=== PATIENT | female | born 2000 | race Caucasian/White ===

== ENCOUNTER 2024-12-01 11:02 | Outpatient (AMB) | payer OTHER, SELFPAY ==
--- NOTE | 2024-12-01 11:04 | MHC.PC.OV ---
Vital Signs 12/01/24 11:18 Height 4 ft 11 in BMI Reason not done Patient refused/unable BP 118/70 Blood Pressure Location Lt brachial Position Sitting Respiration 12 Pulse 113 H Pulse Source Pulse Oximeter Temp 97.2 F Temp Source Oral Pulse Oximetry (%) 99 Oxygen Delivery Method Room Air Intake Visit Reasons: CPE/ anxiety Intake Note: New patient to establish care and cpe [employer] Analyst Required: No Allergies cats Allergy (Unknown, Uncoded 12/01/24 11:42) Unknown dogs Allergy (Unknown, Uncoded 12/01/24 11:42) Unknown wilson Allergy (Unknown, Uncoded 12/01/24 11:42) Unknown Medication List - Last Reconciled 12/01/24 by ESTEBAN Moore No Known Home Meds Tobacco use date assessed: 12/01/24 Dental Screening Dental Screen Date: 12/01/24 Did you have a dental visit in the last 12 months?: No Did you have a dental problem in the last 6 months where you did not have access to dental care?: No Was dental information given to patient?: Patient has dentist HPI HPI Comments History of Present Illness Details 24 y/o F with WEN, obesity, Dysmenorrhea Surgery: none Family hx: As below HM: Tdap declined Pap declined Specialists: None History of Present Illness - The patient is a 24-year-old female presenting to [facility] care and for a CPE - no records avail, previous PCP [facility] P[facility] cc: anxiety and menstrual cramps. - Lifelong social anxiety, worsens in group settings. - Anxiety increases at work and social events like jury duty. - Never used anxiety medication; no counseling history. - Interest in using prn medication for anxiety. - Severe menstrual cramps, no current treatment. - Past use of control patch; no recent therapy. Did not find benefit w/ patch. Interested in OCP but not in COMPL[facility]ANCE [facility] referral. Not ready for pap. - Family history of endometriosis, concern due to severe cramps. - reports Blood work to be checked @ urgent care last year, including complete blood count and ferritin level due to reported hair loss and previous low ferritin levels. Past Surgical History - No prior surgical procedures. Family History - Endometriosis present in family members. 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 Health Maintenance - Tetanus vaccination discussed but declined. Review of Systems - Psychiatric: Reports anxiety, denies depression. - Neurological: Reports no neurological symptoms. - Musculoskeletal: Reports cramping. - Gynecological: Reports severe menstrual cramps. Physical Exam General: Well developed, well nourished, in no acute distress. Appears stated age. Head: Normocephalic, atraumatic. Eyes: Pupils are equal, round and reactive to light and accommodation. Conjunctivae are clear. Vision grossly normal. Ears: TMs clear AU, EACS WNL Nose: Patent, without discharge. Neck: Supple, no adenopathy or thyromegaly. Noted irritation and scabbing on a piercing. Breast: Edu on SBE Lungs: Clear to auscultation bilaterally. No rales, rhonchi or wheeze noted. Good air flow in all britton. Heart: Regular rate and rhythm. No murmurs, click, rubs or gallops are noted. Abdomen: Bowel sounds present in all quadrants. The abdomen is soft, nontender, with no masses or organomegaly noted. No hernias are noted. : Deferred. Reviewed recommendations for routine COMPLIANCE LEAD Pulses: Peripheral pulses are equal and palpable bilaterally. Extremities: No clubbing, cyanosis nor edema is noted. Neurologic: Gait and station normal. Cranial Nerves 2-12 intact. Motor strength grossly symmetrical and intact. No sensory loss. Balance normal. Skin: No rashes, ulcers, or lesions noted. Turgor is good. Skin color is good. Hair and nails are without abnormalities. Psych: Normal eye contact, affect and mood appropriate, and normal interactions. Patient is alert and appropriate to context. R Results Pending Discussion Notes I discussed the patient's current anxiety management, focusing on introducing a PRN medication to alleviate symptoms during stressful situations like jury duty or presentations. I explained the benefits of using a medication that acts swiftly to reduce anxiety without causing sedation. We discussed trialing a low-dose medication at home to understand its effects in a non-stressful environment. Regarding menstrual cramp management, I addressed the historical use of a control patch, its role in symptomatic relief for menstrual cramps. I recommended an oral contraceptive pill as a potential treatment plan to reduce menstrual symptoms. I suggested a referral to an [facility] for comprehensive care and assessment of her menstrual issues - declined. We also reviewed the importance of regular women's health examinations, including Pap smears. We arranged follow-up for blood work results to assess anemia levels due to heavy menstrual periods, and I reinforced the importance of multivitamin use. I recommended follow-up in eight weeks to assess medication effectiveness for both anxiety and menstrual cramps. Assessment and Plan 1. WEN - Initiate hydroxyzine 10mg PRN medication for anxiety episodes. - Home trial for efficacy and side effects. - Follow-up for medication response. - Jury duty excuse letter given 2. Menstrual Cramps - Start oral contraceptive abhilash continuous OCP - [facility] referral declined - Blood work for anemia evaluation. Patient Instructions - Start new anxiety medication at home to test effects. - Begin control pills following your menstrual period.. - Complete blood work today in the lab. - Follow up in 8 weeks for a medication review. - Use the patient portal to communicate and access lab results. Consent Patient was informed and verbally consented to the use of an ambient scribe for clinic note documentation during this visit. An additional 40 minutes was spent addressing the problem(s) noted at todays visit. This includes time spent before the visit reviewing the chart, time spent during the visit, and time spent after the visit on documentation [facility] Medical History (Updated 12/01/24 @ 14:03 by Phoebe Grullon [facility]) No pertinent past medical history Surgical History (Updated 12/01/24 @ 11:22 by Jovany Patel MA) No pertinent past surgical history Family History (Updated 12/01/24 @ 11:24 by Jovany Patel MA) Father Asthma Paternal Grandfather Asthma Diabetes Maternal Grandmother HTN (hypertension) Diabetes Paternal Grandmother HTN (hypertension) Diabetes Social History (Updated 12/01/24 @ 11:21 by Jovany Patel MA) Household Members: Family Housing: House Are you a primary clinical care coordinator to a significant other at home: No Do you presently have visiting nurse or other home services: No Alcohol intake: never Patient Tobacco Use Status: Never used Tobacco e-Cigarette/Vaping Use: Never Used Second Hand Smoke Exposure: No Current occupational status: employed Current occupation: enrollment Cognitive needs: No Hearing needs: No Vision needs: No Questionnaire PHQ-9 Over the last 2 weeks, how often have you been bothered by any of the following problems? 1. Little interest or pleasure in doing things: not at all 2. Feeling down, depressed, or hopeless: not at all 3. Trouble falling or staying asleep, or sleeping too much: more than half the days 4. Feeling tired or having little energy: more than half the days 5. Poor appetite or overeating: not at all 6. Feeling bad about yourself - or that you are a failure or have let yourself or your family down: not at all 7. Trouble concentrating on things, such as reading the newspaper or watching television: not at all 8. Moving or speaking so slowly that other people could have noticed. Or the opposite - being so fidgety or restless that you have been moving around a lot more than usual: not at all 9. Thoughts that you would be better off or of hurting yourself in some way: not at all Total score: 4 Depression Screening Interpretation: Negative Depression Screening Done: Yes 50418 - PHQ-9 Billing: Yes Source: Developed by Drs. Ayaan Avelar, Monique Albarran, Deandre Burris and colleagues, with an educational alecia from [employer]. Thrive Questionnaire Date Thrive assessed: 12/01/24 I am a: Patient What is your living situation today?: I have a steady place to live Within the past 12 months, did the food you bought not last and you didn't have the money to get more?: I choose not to answer this question Within the past 12 months, did you worry whether your food would run out before you got money to buy more?: I choose not to answer this question Do you have trouble paying for medicines?: I choose not to answer this question Do you have trouble getting transportation to medical appointments?: No Do you have trouble paying your heating and electricity bill?: No Do you have trouble taking care of your child, family member or friend?: No Do you have trouble with day-to-day activities such as bathing, preparing meals, shopping, managing finances, etc.?: No Are you currently unemployed and looking for a job?: No Are you interested in more education?: I choose not to answer this question Please select the resources that you would like help with: None Currently or been in a relationship where the following occur: No concerns reported THRIVE Score: 0 AUDIT C Alcohol Use Questionnaire (AUDIT-C) 1. How often do you have a drink containing alcohol?: Never 3. How often do you have six or more drinks on one occasion?: Never Total Score: 0 Score Reviewed/Action Taken: Yes WEN-7 AMB Questionnaire WEN-7 Date WEN - 7 assessed: 12/01/24 Feeling nervous, anxious, or on edge: 3 = Nearly every day Not being able to stop or control worryin = Several days Worrying too much about different things: 1 = Several days Trouble relaxin = Several days Being so restless that it is hard to sit still: 0 = Not at all Becoming easily annoyed or irritable: 2 = More than half the days Feeling afraid as if something awful might happen: 0 = Not at all Total WEN-7 score (0-4 normal; 5-9 mild; 10-14 moderate; 15-21 severe): 8 Source: Developed by Drs. Ayaan Avelar, Monique Albarran, Deandre Bruris and colleagues, with an educational alecia from [employer]. WEN-7 Assessment Billing WEN-7 Assessment Tool: WEN-7 Assessment 94743 Physical exam (Primary Care) Vital Signs: Last Vital Signs Temp 97.2 F 12/01/24 11:18 Pulse 113 H 12/01/24 11:18 Resp 12 12/01/24 11:18 BP 118/70 12/01/24 11:18 Pulse Ox 99 12/01/24 11:18 Oxygen Delivery Method Room Air 12/01/24 11:18 Tobacco/Smoking Status: Tobacco use Status Tobacco use date assessed 12/01/24 12/01/24 11:07 Patient Tobacco Use Status Never used Tobacco 12/01/24 11:21 e-Cigarette/Vaping Use Never Used 12/01/24 11:21 PHQ-9: PHQ-9 Score PHQ-9: Total score 4 12/01/24 11:46 Depression Screening Interpretation: Negative Thrive Assessment: Date of Thrive Assessment Date Thrive assessed 12/01/24 12/01/24 11:07 Currently or been in a relationship where the following occur: No concerns reported Coding Level of Care Code New Pt Level 4 (47987) New Pt Prev Care 18-39yr(17500 Diagnoses Encounter to establish care Z76.89 WEN (generalized anxiety disorder) F41.1 Dysmenorrhea N94.6 History of anemia Z86.2 Papanicolaou smear declined Z53.20 History of vitamin D deficiency Z86.39 Family history of endometriosis Z84.2 Tetanus, diphtheria, and acellular pertussis (Tdap) vaccination declined Z28.21 Encounter for general adult medical examination with abnormal findings Z00.01 Additional Codes WEN-7 Assessment Billing - WEN-7 Assessment Tool: WEN-7 Assessment 95044 ([id number]) PHQ-9 - 93750 - PHQ-9 Billing: Yes ([id number]) Assessment & Plan Assessment & Plan (1) Encounter to establish care: Code(s): Z76.89 - Persons encountering health services in other specified circumstances (2) WEN (generalized anxiety disorder): Code(s): F41.1 - Generalized anxiety disorder Category: Medical (3) Dysmenorrhea: Code(s): N94.6 - Dysmenorrhea, unspecified Category: Medical (4) History of anemia: Code(s): Z86.2 - Personal history of diseases of the blood and blood-forming organs and certain disorders involving the immune mechanism Category: Medical (5) Papanicolaou smear declined: Code(s): Z53.20 - Procedure and treatment not carried out because of patient's decision for unspecified reasons Category: Medical (6) History of vitamin D deficiency: Code(s): Z86.39 - Personal history of other endocrine, nutritional and metabolic disease Category: Medical (7) Family history of endometriosis: Code(s): Z84.2 - Family history of other diseases of the genitourinary system Category: Medical (8) Tetanus, diphtheria, and acellular pertussis (Tdap) vaccination declined: Code(s): Z28.21 - Immunization not carried out because of patient refusal Category: Medical (9) Encounter for general adult medical examination with abnormal findings: Onset Date: ~12/01/24 Code(s): Z00.01 - Encounter for general adult medical examination with abnormal findings Category: Medical Plan . Orders: Orders Ferritin Today N94.6 - Dysmenorrhea, unspecified, Z53.20 - Procedure and treatment not carried out because of patient's decision for unspecified reasons, Z84.2 - Family history of other diseases of the genitourinary system, Z86.2 - Personal history of diseases of the blood and blood-forming organs and certain disorders involving the immune mechanism, Z86.39 - Personal history of other endocrine, nutritional and metabolic disease Hemoglobin A1c Today N94.6 - Dysmenorrhea, unspecified, Z53.20 - Procedure and treatment not carried out because of patient's decision for unspecified reasons, Z84.2 - Family history of other diseases of the genitourinary system, Z86.2 - Personal history of diseases of the blood and blood-forming organs and certain disorders involving the immune mechanism, Z86.39 - Personal history of other endocrine, nutritional and metabolic disease TSH reflex Free T4 Today N94.6 - Dysmenorrhea, unspecified, Z53.20 - Procedure and treatment not carried out because of patient's decision for unspecified reasons, Z84.2 - Family history of other diseases of the genitourinary system, Z86.2 - Personal history of diseases of the blood and blood-forming organs and certain disorders involving the immune mechanism, Z86.39 - Personal history of other endocrine, nutritional and metabolic disease Vitamin B12 and Folate Today N94.6 - Dysmenorrhea, unspecified, Z53.20 - Procedure and treatment not carried out because of patient's decision for unspecified reasons, Z84.2 - Family history of other diseases of the genitourinary system, Z86.2 - Personal history of diseases of the blood and blood-forming organs and certain disorders involving the immune mechanism, Z86.39 - Personal history of other endocrine, nutritional and metabolic disease Complete Blood Count no Diff Today N94.6 - Dysmenorrhea, unspecified, Z53.20 - Procedure and treatment not carried out because of patient's decision for unspecified reasons, Z84.2 - Family history of other diseases of the genitourinary system, Z86.2 - Personal history of diseases of the blood and blood-forming organs and certain disorders involving the immune mechanism, Z86.39 - Personal history of other endocrine, nutritional and metabolic disease Comprehensive Met. Panel Today N94.6 - Dysmenorrhea, unspecified, Z53.20 - Procedure and treatment not carried out because of patient's decision for unspecified reasons, Z84.2 - Family history of other diseases of the genitourinary system, Z86.2 - Personal history of diseases of the blood and blood-forming organs and certain disorders involving the immune mechanism, Z86.39 - Personal history of other endocrine, nutritional and metabolic disease IRON PROFILE Today N94.6 - Dysmenorrhea, unspecified, Z53.20 - Procedure and treatment not carried out because of patient's decision for unspecified reasons, Z84.2 - Family history of other diseases of the genitourinary system, Z86.2 - Personal history of diseases of the blood and blood-forming organs and certain disorders involving the immune mechanism, Z86.39 - Personal history of other endocrine, nutritional and metabolic disease Lipid Panel Today N94.6 - Dysmenorrhea, unspecified, Z53.20 - Procedure and treatment not carried out because of patient's decision for unspecified reasons, Z84.2 - Family history of other diseases of the genitourinary system, Z86.2 - Personal history of diseases of the blood and blood-forming organs and certain disorders involving the immune mechanism, Z86.39 - Personal history of other endocrine, nutritional and metabolic disease Vitamin D 25-OH Total Today N94.6 - Dysmenorrhea, unspecified, Z53.20 - Procedure and treatment not carried out because of patient's decision for unspecified reasons, Z84.2 - Family history of other diseases of the genitourinary system, Z86.2 - Personal history of diseases of the blood and blood-forming organs and certain disorders involving the immune mechanism, Z86.39 - Personal history of other endocrine, nutritional and metabolic disease Medications: New levonorgestrel-ethinyl estrad 90-20 mcg (28) (Abhilash (28)) 1 tab PO DAILY 84 tabs 2RF hydroxyzine HCl 10 mg PO DAILY PRN 30 tabs 1RF anxiety Patient Instructions: Walk-In Care (Urgent Care): We Make it Easy Walk-in for urgent medical issues such as: ? Seasonal Allergies ? Insect Bites ? Cough ? Diarrhea ? Acute Asthma Attacks ? Back, Knee or Joint Pain ? Ear Infection ? Fever without a Rash ? Headaches ? Nausea ? [place] Eye, Rash or Skin Irritation ? Sore Throat ? Sports Physicals ? Vomiting Most insurances are accepted. Patients do not need to be part of the [facility] to seek care at the walk-in clinic. Locations [facility] , [place] [address] ? [phone] [facility] Walk-In Care in [place] provides services to ages 18 and over. Open Saturday-Saturday: 8 a.m. to 5 p.m. and Saturday: 9 a.m. to 3 p.m.* *Hours may vary due to staffing availability. To confirm Walk-In Care hours in [place], please call [phone]. [address] [place] [address] ? [phone] [facility] Walk-In Care in [place] provides services to ages 12 and over. Open Saturday-Saturday: 8 a.m. to 5 p.m. Hours may vary due to staffing availability. To confirm Walk-In Care hours in [place], please call [phone]. LABORATORY SERVICES: [facility] Lab ? Primary Location [address] [place] [address] Saturday through Saturday 6:00 AM ? 5:00 PM Saturday 7:00 AM ? 11:00 AM* [phone] The [facility] Lab is centrally located near the front entrance of the [facility] for easy outpatient access. Convenient parking is provided for outpatients. *Hours may vary due to staffing availability. To confirm Laboratory hours for any location, please call [phone]. Offsite Location For your convenience, we offer offsite laboratory draw stations at the following locations: [address] [place] [address] ? [address], [address] Saturday through Saturday 7:30 AM ? 1:00 PM* [phone] *Hours may vary due to staffing availability. To confirm Laboratory hours for any location, please call [phone]. [place] ? [address] Saturday through Saturday 6:00 AM ? 3:30 PM* Saturday 6:30 AM ? 3 PM* [phone] *Hours may vary due to staffing availability. To confirm Laboratory hours for any location, please call [phone] [place] [address] Saturday through Saturday 7:30 AM ? 4:00 PM* [phone] *Hours may vary due to staffing availability. To confirm Laboratory hours for any location, please call [phone] [place] [address] Saturday through 9:00 AM ? 4:00 PM* *Hours may vary due to staffing availability. To confirm Laboratory hours for any location, please call [phone]. Appointments are not necessary. Walk-ins are welcome. Like all the departments throughout the [facility], our Lab undergoes frequent reviews to ensure the quality and accuracy of test results, and our staff takes special pride in its status as a nationally accredited facility. Patient Portal: ONE PATIENT. ONE RECORD. BETTER CARE. [facility] has a fully integrated, cutting-edge mobile electronic health information system that has revolutionized the way we care for our patients and manage our organization. This system improves communication and coordination enabling us to provide safe, higher-quality care, and an overall positive experience for staff and patients. Our first priority, as always, is to deliver the highest quality care possible. The system is running in the background supporting that priority. This portal is for all [facility] services and practices. If you are experiencing any technical difficulties with enrolling or logging into the Patient Portal please complete the [facility] Patient Portal Technical Support Form. [facility] now offers a new secure on-line interactive tool for patients to review their health information ? ?Patient Portal. This interactive web portal will enable patients and their families to take an active role in their care by providing easy, secure access to their health information via the internet. The Patient Portal provides patients with instant access to their health information, including laboratory results, medications, allergies, demographic information, visit history, and more. In addition to managing their own care, parents and health care proxies with authorized consent will appreciate the ability to access the records of those individuals for whom they provide care. Please note: if you wish to gain access (Proxy) to another patient?s portal, you will be required to come to the Medical Records Department in person at [facility]. Both the patient giving proxy access and the proxy will need to provide photo identification and complete the appropriate authorization. The Patient Portal also allows track their appointments online. The [facility] Patient Portal also saves patients time by allowing them to submit updates to their demographic and contact information prior to their visits. Portal email notifications will also alert patients to any new activity on their portal, such as test results and new appointments. In order to initially enroll in the [facility] Patient Portal, you will need to enter some required information including the following: your [facility] Medical Record number your personal home email address name date of Please note: In order to enroll in the [facility] Patient Portal, we need to have your email address on file in your electronic medical record. ?The email address needs to be specific for one person (yourself) in order for your Portal enrollment to be successful. ?You can update your email address in person with our Registration staff when you are registering for a hospital visit. ?Otherwise, you will need to come to the Health Information Management (Medical Records) Department at [facility]. ?We are open from Saturday ? Saturday from 7:30 a.m. ? 4:30 p.m. ?You will be required to present a photo id. Once you have successfully enrolled in the Patient Portal, you will receive a one-time user id and password for the Portal, sent to your email address. ?This will allow you to log into the Patient Portal within 99 hrs and reset your own logon id and password, and define personal security questions. ?Once your permanent login and password have been set, you can log into the [facility] Patient Portal at any time via the blue button above or from the Portal Logon button on any page of the [facility] website. [facility] encourage all of our patients to enroll in Patient Portal as it presents a valuable opportunity for patients and their families to actively participate in their care and stay healthy Welcome to [facility]. ?We look forward to working with you. National Suicide and Crisis Lifeline: Available 24 hours a day, 7 days a week, 365 days a year Dial 988 with any telephone to speak to someone immediately [facility] [address] [place] [phone] , Walk ins [facility] (Mental / Behavioral health therapist: [address] [place] [address] [facility] ([facility]) at [facility]: [address], [place] [id number] Open from 10am - 12pm (walk ins welcome) [facility] Crisis Services: [address] [place] [address] Walk in hours from 10am - 12pm Behavioral health Network: [address] [place] [address] [phone] [address] [place] [address] Saturday through Saturday 8am - 8pm Saturday and Saturday 9am - 5pm Crisis Hotlines Suicide prevention, domestic violence, and other crisis hotlines for youth, young adults, and their friends and families. [facility] Safeline: The [facility] Safeline helps youth who have run away, are thinking about running away, or who already ran away but are ready to come home. Parents and guardians can also contact the hotline if they are worried about their child running away or if their child has already left home. The hotline is available 24 hours a day, seven days a week. Youth, parents, and guardians can also use the online chat feature on the [facility]'s website to ask for help and get support, or can send a text to [facility] [place]. [facility] National Suicide Prevention Lifeline: The National Suicide Prevention Lifeline is a network of local crisis centers that are available 31/12 to provide support for youth and adults who are in any kind of emotional crisis. In addition to the main hotline number listed above, there are several other numbers to call depending on your needs: [place] Language: Deaf and Hard of [phone] Veterans: Disaster Distress: Anyone can also use their online chat feature on their website. [place] Suicide Prevention Lifeline [facility] Helpline: The [facility] Helpline is available to anyone in [place] who is need of emotional support. Anyone can call or text the helpline to receive help from specially trained volunteers. [place] high school and college students can also get online support through the IMHear_ program. For high school students, volunteers ages 15-18 are available Saturday- from 6-9PM. For college students, IMHear_ is available Saturday-Saturday from 5-9PM. The Darrian Project - The Darrian Project is a 31/12 crisis intervention and suicide prevention hotline for LGBTQ youth. Youth can also text Darrian to for support, or use the online chat feature on the Darrian Project's website. TrevorText is available Saturday-Saturday between 3-10PM. TrevorChat is available seven days a week between 3-10PM. SafeLink: SafeLink is for anyone who is being affected by domestic violence or dating violence. Volunteers at [employer] speak Upper Sorbian and [place], and [employer] also has a service that can provide translation in more than 130 languages. TTY:
[2024-12-01 11:18] VITALS: BP 118/70; PULSE 113; RESP 12; TEMP 36.2; O2SAT 99
== END 2024-12-01 12:12 | disposition home or self-care (01) ==
PROVIDERS: PCP Nurse Practitioner Family; Visit Provider Nurse Practitioner Family
DX: Z00.01 Encounter for general adult medical examination with abnormal findings (principal); F41.1 Generalized anxiety disorder; N94.6 Dysmenorrhea, unspecified; Z76.89 Persons encountering health services in other specified circumstances; Z86.2 Personal history of diseases of the blood and blood-forming organs and certain disorders involving the immune mechanism; Z53.20 Procedure and treatment not carried out because of patient's decision for unspecified reasons; Z86.39 Personal history of other endocrine, nutritional and metabolic disease; Z84.2 Family history of other diseases of the genitourinary system; Z28.21 Immunization not carried out because of patient refusal

== ENCOUNTER → 2024-12-01 11:02 | Outpatient (BNVA) | payer SELFPAY | PROVIDERS: PCP Nurse Practitioner Family; Visit Provider Nurse Practitioner Family | DX: Z13.89 Encounter for screening for other disorder (principal) ==

== ENCOUNTER 2024-12-01 13:34 | Outpatient (REF) | payer SELFPAY ==
[2024-12-01 18:52] LABS: Estimated Average Glucose 97 mg/dL; Total Hemoglobin (HGBA1C) 3540.4676 umol/L
[2024-12-01 18:57] LABS: Alanine Aminotransferase 16 U/L (0-31); Albumin Level 4.1 g/dL (3.5-5.0); Alkaline Phosphatase 71 U/L (39-117); Anion Gap 14 (12-20); Aspartate Amino Transferase 25 U/L (5-31); Bilirubin Total 0.3 mg/dL (0.0-1.0); Blood Urea Nitrogen 13 mg/dL (9-16); Calcium 9.2 mg/dL (8.4-10.2); Carbon Dioxide 24 mmol/L (22-29); Chloride 107 mmol/L (96-108); Cholesterol 145 mg/dL (<200); Estimated Glomerular Filt Rate > 60; Glucose Random 79 mg/dL (60-115); HDL Cholesterol 39 mg/dL (>40); Iron 47 mcg/dL (30-160); LDL Cholesterol Calculated 96 mg/dL (<100); Percent Iron Saturation 19 % (15-50); Sodium 141 mmol/L (135-145); Total Iron Binding Capacity 248 mcg/dL (228-428); Total Protein 7.4 g/dL (6.5-8.0); Triglycerides 54 mg/dL (<150); Unsaturated Iron Binding 201 ug/dL
[2024-12-01 19:01] LABS: Hematocrit 41.3 % (37.0-47.0); Hemoglobin 13.4 g/dl (12.0-16.0); Mean Corpuscular HGB Conc 32.4 g/dl (31.0-35.0); Mean Corpuscular Hemoglobin 28.2 pg (27.0-33.0); Mean Corpuscular Volume 86.8 fL (80.0-98.0); Mean Platelet Volume 10.5 fL (9.4-12.3); Platelet Count 285 X10*3/uL (160-400); Red Blood Count 4.76 X10*6/uL (4.20-5.50); Red Cell Distribution Width 12.7 % (11.0-16.0); White Blood Count 10.4 X10*3/uL (4.8-10.8)
[2024-12-01 19:19] LABS: Ferritin 35 ng/mL (10-122); TSH reflex Free T4 0.94 uIU/mL (0.32-4.0); Vitamin D 25-OH Total 40.3 ng/mL (>30)
[2024-12-01 19:24] LABS: Folate 12.1 ng/mL (> or = 4.0); Vitamin B12 1454 pg/mL (200-900)
== END 2024-12-01 13:35 | disposition home or self-care (01) ==
LOC: HO.WFDLDS 13:34
PROVIDERS: Visit Provider Nurse Practitioner Family
DX: Z00.01 Encounter for general adult medical examination with abnormal findings (principal); Z76.89 Persons encountering health services in other specified circumstances; F41.1 Generalized anxiety disorder; N94.6 Dysmenorrhea, unspecified; Z86.2 Personal history of diseases of the blood and blood-forming organs and certain disorders involving the immune mechanism; Z86.39 Personal history of other endocrine, nutritional and metabolic disease; Z28.21 Immunization not carried out because of patient refusal; Z13.30 Encounter for screening examination for mental health and behavioral disorders, unspecified; Z13.31 Encounter for screening for depression; Z84.2 Family history of other diseases of the genitourinary system
CPT/HCPCS: 36415; 80053; 80061; 82306; 82607; 82728; 82746; 83036; 83540; 84443; 85027; 96127; 99385

== ENCOUNTER 2025-01-27 12:31 | Outpatient (AMB) | payer OTHER, SELFPAY ==
--- NOTE | 2025-01-27 12:33 | A.OFFPC_ITS ---
Vital Signs 01/27/25 12:37 Height 4 ft 11 in BMI Reason not done Patient refused/unable BP 99/67 Blood Pressure Location Lt brachial Position Sitting Respiration 12 Pulse 103 H Pulse Source Pulse Oximeter Temp 97.2 F Temp Source Oral Pulse Oximetry (%) 100 Oxygen Delivery Method Simple Mask Intake Visit Reasons: 8 weeks 30 min fu start OCP and WEN Intake Note: 8 weeks follow up on WEN and med start review. Patient has a few questions regarding her last lab. Drop Wirer Required: No Allergies cats Allergy (Unknown, Uncoded 01/27/25 12:35) Unknown dogs Allergy (Unknown, Uncoded 01/27/25 12:35) Unknown wilson Allergy (Unknown, Uncoded 01/27/25 12:35) Unknown Medication List - Last Reconciled 01/27/25 by HENRI Moore- levonorgestrel-ethinyl estrad 90-20 mcg (28) (Catia (28)) 1 tab PO DAILY Tobacco use date assessed: 01/27/25 Dental Screening Dental Screen Date: 01/27/25 Did you have a dental visit in the last 12 months?: Yes Did you have a dental problem in the last 6 months where you did not have access to dental care?: No Was dental information given to patient?: Patient has dentist HPI HPI Comments History of Present Illness Details 24 y/o F with WEN, obesity, Dysmenorrhea Surgery: none Family hx: As below Social: 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 HM: Tdap declined Pap declined Specialists: None History of Present Illness - The patient is a 24-year-old female pr esenting for fu on anxiety and dysmenorrhea. - Anxiety disorder: Inadequate response to hydroxyzine; trialed during low- stress periods without benefit. Seeks alternative management. - Dysmenorrhea: On oral contraceptives; experiences pediatric occupational therapist bleeding but persistent spotting and mild abdominal distention. - Constipation: Persistent constipation; longstanding gastrointestinal issues, previously episodic diarrhea. - Elevated B12 Levels: Recent tests reve aled elevated B12; drinking b rich drinks (celsius) Legs feel restless. Review of Systems - Psychiatric: Reports anxiety - Gastrointestinal: Reports constipation and bloating - Hematologic/Lymphatic: Reports elevate d B12 levels - Genitourinary: Reports dysmenorrhea, s potting, pediatric occupational therapist menstrual bleeding Physical Exam General: Well developed, well nourished, in no acute distress. Appears stated age. Head: Normocephalic, atraumatic. Eyes: Pupils are equal, round and reactive to light and accommodation. Conjunctivae are clear. Lungs: Clear to auscultation bilaterally. No rales, rhonchi or wheeze noted. Good air flow in all britton. Heart: Regular rhythm, mildly tachycardic, No murmurs, click, rubs or gallops are noted. Abdomen: Bowel sounds present in all quadrants. The abdomen is soft, with mild cramping noted below, nontender, with no masses or organomegaly noted. No hernias are noted. Musculoskeletal: Joints are nontender, without swelling, redness, or effusions. Pulses: Peripheral pulses are equal and palpable bilaterally. Extremities: No clubbing, cyanosis nor edema is noted. Psych: Mood and affect appropriate. Results Labs: - 11/2024 reviewed w/ her See below Discussion Notes I discussed with the patient the continuation of her current oral contraceptive for dysmenorrhea for an additional cycle to observe for improvement in symptoms, such as reduced period length and bleeding. I explained that bloating and constipation can be side effects of control pills, and I recommended managing constipation with Benefiber. For anxiety, we discussed transitioning from hydroxyzine to metoprolol on an as-needed basis, explaining dosage and administration, and emphasizing home trials to assess effectiveness. We reviewed the elevated B12 levels' potential risks, including neurological symptoms, and agreed to reduce vitamin B intake from energy drinks. Follow-up was advised in six weeks to reassess the treatment outcomes. Patient was given time to ask questions. All questions were answered to their satisfaction. Assessment and Plan 1. Anxiety Disorder - Change to metoprolol 12.5-25 mg as nee ded. - Discontinue hydroxyzine. 2. Dysmenorrhea - Continue oral contraceptive for one mo re cycle. - Reassess symptoms after full trial. 3. Constipation - Benefiber recommended for management. - Explained fiber supplement use and ashil efits. 4. Elevated B12 Levels/RLS - Reduce vitamin B intake from energy dr thompson. Patient Instructions - Continue your control for one mo re month. - Start metoprolol at a lower dose to ma nage anxiety. Only increase if needed. - Limit consumption of energy drinks hig h in B vitamins. - Begin Benefiber daily for constipation relief. - Follow up in six weeks or sooner if yo u have concerns. Consent Patient was informed and verbally consented to the use of an ambient scribe for clinic note documentation during this visit. Total time spent caring for the patient today was 30 minutes. This includes time spent before the visit reviewing the chart, time spent during the visit, and time spent after the visit on documentation, reviewing laboratory results, diagnostic imaging, medications, performing a medically necessary evaluation, counseling on diagnoses, care coordination, ordering appropriate tests, ordering appropriate medications, review of tests performed by other providers, reporting test results with the patient, communication with other healthcare providers. Quit [facility] Medical History (Updated 01/27/25 @ 13:44 by Phoebe Grullon [facility]) No pertinent past medical history Surgical History (Updated 12/01/24 @ 11:22 by Jovany Patle MA) No pertinent past surgical history Family History (Updated 12/01/24 @ 11:24 by Jovany Patel MA) Father Asthma Paternal Grandfather Asthma Diabetes Maternal Grandmother HTN (hypertension) Diabetes Paternal Grandmother HTN (hypertension) Diabetes Social History (Updated 12/01/24 @ 11:21 by Jovany Patel MA) Household Members: Family Both parents involved: Yes Caregiver staying overnight: No Housing: House Are you a primary care companion to a significant other at home: No Do you presently have visiting nurse or other home services: No 75 years or older and lives alone: No Alcohol intake: never Patient Tobacco Use Status: Never used Tobacco e-Cigarette/Vaping Use: Never Used Second Hand Smoke Exposure: No Current occupational status: employed Current occupation: enrollment Cognitive needs: No Hearing needs: No Vision needs: No Questionnaire PHQ-9 Over the last 2 weeks, how often have you been bothered by any of the following problems? 1. Little interest or pleasure in doing things: not at all 2. Feeling down, depressed, or hopeless: not at all 3. Trouble falling or staying asleep, or sleeping too much: several days 4. Feeling tired or having little energy: several days 5. Poor appetite or overeating: not at all 6. Feeling bad about yourself - or that you are a failure or have let yourself or your family down: not at all 7. Trouble concentrating on things, such as reading the newspaper or watching television: not at all 8. Moving or speaking so slowly that other people could have noticed. Or the opposite - being so fidgety or restless that you have been moving around a lot more than usual: not at all 9. Thoughts that you would be better off or of hurting yourself in some way: not at all Total score: 2 Depression Screening Interpretation: Negative Depression Screening Done: Yes 86761 - PHQ-9 Billing: Yes Source: Developed by Drs. Ayaan Avelar, Monique Albarran, Deandre Burris and colleagues, with an educational alecia from [employer]. Thrive Questionnaire Date Thrive assessed: 01/27/25 I am a: Patient What is your living situation today?: I have a steady place to live Within the past 12 months, did the food you bought not last and you didn't have the money to get more?: I choose not to answer this question Within the past 12 months, did you worry whether your food would run out before you got money to buy more?: I choose not to answer this question Do you have trouble paying for medicines?: I choose not to answer this question Do you have trouble getting transportation to medical appointments?: No Do you have trouble paying your heating and electricity bill?: No Do you have trouble taking care of your child, family member or friend?: No Do you have trouble with day-to-day activities such as bathing, preparing meals, shopping, managing finances, etc.?: No Are you currently unemployed and looking for a job?: No Are you interested in more education?: I choose not to answer this question Please select the resources that you would like help with: None Currently or been in a relationship where the following occur: No concerns reported THRIVE Score: 0 WEN-7 AMB Questionnaire WEN-7 Date WEN - 7 assessed: 01/27/25 Feeling nervous, anxious, or on edge: 0 = Not at all Not being able to stop or control worryin = Not at all Worrying too much about different things: 0 = Not at all Trouble relaxin = Not at all Being so restless that it is hard to sit still: 0 = Not at all Becoming easily annoyed or irritable: 0 = Not at all Feeling afraid as if something awful might happen: 0 = Not at all Total WEN-7 score (0-4 normal; 5-9 mild; 10-14 moderate; 15-21 severe): 0 Source: Developed by Drs. Ayaan Avelar, Monique Albarran, Deandre Burris and colleagues, with an educational alecia from [employer]. WEN-7 Assessment Billing WEN-7 Assessment Tool: WEN-7 Assessment 82711 Physical exam (Primary Care) Vital Signs: Last Vital Signs Temp 97.2 F 01/27/25 12:37 Pulse 103 H 01/27/25 12:37 Resp 12 01/27/25 12:37 BP 99/67 01/27/25 12:37 Pulse Ox 100 01/27/25 12:37 Oxygen Delivery Method Simple Mask 01/27/25 12:37 Tobacco/Smoking Status: Tobacco use Status Tobacco use date assessed 01/27/25 01/27/25 12:39 Patient Tobacco Use Status Never used Tobacco 01/27/25 12:39 e-Cigarette/Vaping Use Never Used 01/27/25 12:39 PHQ-9: PHQ-9 Score PHQ-9: Total score 2 01/27/25 13:02 Depression Screening Interpretation: Negative Thrive Assessment: Date of Thrive Assessment Date Thrive assessed 01/27/25 01/27/25 12:39 Currently or been in a relationship where the following occur: No concerns reported Results Reviewed Results Reviewed: 11/2024 Laboratory Result Units Range Interpretation Provider Comments White Blood Count 10.4 X10*3/uL (4.8-10.8) Red Blood Count 4.76 X10*6/uL (4.20-5.50) Hemoglobin 13.4 g/dl (12.0-16.0) Hematocrit 41.3 % (37.0-47.0) Mean Corpuscular Volume 86.8 fL (80.0-98.0) Mean Corpuscular Hemoglobin 28.2 pg (27.0-33.0) Mean Corpuscular Hemoglobin Concent 32.4 g/dl (31.0-35.0) Red Cell Distribution Width 12.7 % (11.0-16.0) Platelet Count 285 X10*3/uL (160-400) Mean Platelet Volume 10.5 fL (9.4-12.3) Nucleated RBC Absolute Count (auto) 0.000 X10*3/uL (0.0-0.012) Nucleated Red Blood Cells % (auto) 0.0 /100WBC (0.0-0.2) Sodium Level 141 mmol/L (135-145) Potassium Level 4.0 mmol/L (3.3-5.1) Chloride Level 107 mmol/L (96-108) Carbon Dioxide Level 24 mmol/L (22-29) Anion Gap 14 (12-20) Blood Urea Nitrogen 13 mg/dL (9-16) Creatinine 0.64 mg/dL (0.5-1.4) Estimated Creatinine Clearance Calc Not Reportable Estimat Glomerular Filtration Rate > 60 Random Glucose 79 mg/dL (60-115) Estimated Average Glucose 97 mg/dL Hemoglobin A1c Percent 5.0 % (<6.0) Calcium Level 9.2 mg/dL (8.4-10.2) Iron Level 47 mcg/dL (30-160) Total Iron Binding Capacity 248 mcg/dL (228-428) Percent Iron Saturation 19 % (15-50) Unsaturated Iron Binding 201 ug/dL Ferritin 35 ng/mL (10-122) Total Bilirubin 0.3 mg/dL (0.0-1.0) Aspartate Amino Transf (AST/SGOT) 25 U/L (5-31) Alanine Aminotransferase (ALT/SGPT) 16 U/L (0-31) Alkaline Phosphatase 71 U/L (39-117) Total Protein 7.4 g/dL (6.5-8.0) Albumin 4.1 g/dL (3.5-5.0) Triglycerides Level 54 mg/dL (<150) Cholesterol Level 145 mg/dL (<200) LDL Cholesterol, Calculated 96 mg/dL (<100) HDL Cholesterol 39 mg/dL (>40) Low Vitamin B12 Level 1454 pg/mL (200-900) High 25-Hydroxy Vitamin D Total 40.3 ng/mL (>30) Folate 12.1 ng/mL (> or = 4.0) Thyroid Stimulating Hormone (TSH) 0.94 uIU/mL (0.32-4.0) Coding Level of Care Code Est Pt Level 4 (77014) Complex EM visit Add On G2211 Diagnoses WEN (generalized anxiety disorder) F41.1 Dysmenorrhea N94.6 High serum vitamin B12 R79.89 RLS (restless legs syndrome) G25.81 Additional Codes WEN-7 Assessment Billing - WEN-7 Assessment Tool: WEN-7 Assessment 69394 ([id number]) PHQ-9 - 44062 - PHQ-9 Billing: Yes ([id number]) Assessment & Plan Assessment & Plan (1) WEN (generalized anxiety disorder): Code(s): F41.1 - Generalized anxiety disorder Category: Medical (2) Dysmenorrhea: Code(s): N94.6 - Dysmenorrhea, unspecified Category: Medical (3) High serum vitamin B12: Code(s): R79.89 - Other specified abnormal findings of blood chemistry Category: Medical (4) RLS (restless legs syndrome): Code(s): G25.81 - Restless legs syndrome Category: Medical Plan , Medications: New metoprolol tartrate 1/2 to 1 tab daily as needed for anxiety 25 mg PO DIRECTED PRN 30 tabs 0RF anxiety minoxidil 1.25 mg (1/2 x 2.5 mg) PO DAILY 1 tab 0RF
[2025-01-27 12:37] VITALS: BP 99/67; PULSE 103; RESP 12; TEMP 36.2; O2SAT 100
--- OUTSIDE RECORDS SUMMARY | 2025-01-27 13:25 | XMS_ITS | Clinical Summary ---
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 Not on yuni e 03/18/2024 Are you concerned about learning? Not on file 03/18/2024 No 03/18/2024 No 03/18/2024 Digital Access Answer Date Recorded No 03/18/2024 No 03/18/2024 Reliable internet access at home? Not on file 03/18/2024 Device with a working camera? Not on file Intimate Partner Violence Answer Date R ecorded Are you denied basic needs s uch as food, clothing, or medical care? No 03/18/2024 In the past 12 months have y ou been in a relationship with a person who hurts, threatens, or tries to control you? No 03/18/2024 Are you denied basic needs s uch as food, clothing, or medical care? No 03/18/2024 In the past 12 months have y ou been in a relationship with a person who hurts, threatens, or tries to control you? No 03/18/2024 Comments Unknown Sex and Gender Information Value Date Recorded Sex Assigned at Not on file Legal Sex Female 5:35 PM EDT Gender Identity Not on file Sexual Orientation Not on file Last Filed Vital Signs Vital Sign Reading Time Taken Comments Blood Pressure 123/81 03/18/2024 7:36 PM EDT Pulse 118 03/18/2024 7:36 PM EDT Temperature 36.5 C (97.7 F) 03/18/2024 7:36 PM EDT Respiratory Rate 16 03/18/2024 7:36 PM EDT Oxygen Saturation 97% 03/18/2024 7:36 PM EDT Inhaled Oxygen Concentration - - Weight 54.4 kg (120 lb) 03/18/2024 5:55 PM EDT Height 149.9 cm (4' 11 ) 03/18/2024 5:55 PM EDT Body Mass Index 24.24 03/18/2024 5:55 PM EDT Plan of Treatment Health Maintenance Due Date Last Done Comments Adult Td,Tdap Booster 2000 DEPRESSION SCREENING 2012 SMOKING Hx and SMOKELESS TOB ACCO SCREENING 2013 HPV VACCINES (1 - 3-dose series) 2015 CHLAMYDIA SCREENING 2016 HEPATITIS C SCREENING 2018 HIV ONE-TIME SCREENING (18-6 5 YEARS) 2018 PAP SMEAR 2021 COVID-19 VACCINE (2023-2 5 season) 2024 HEPATITIS A VACCINES Aged Out No long er eligible based on patient's age to complete this topic HIB VACCINES Aged Out No longer eligi ble based on patient's age to complete this topic MENINGOCOCCAL VACCINES (ACWY) Aged Out No longer eligible based on patient's age to complete this topic MENINGOCOCCAL VACCINES (B) Aged Out N o longer eligible based on patient's age to complete this topic PNEUMOCOCCAL VACCINES (0-49 years) Aged Out No longer eligible based on patient's age to complete this topic Medical Devices Not on file Care Teams Tabulating Machine Mechanic Relationship Specialty Start Date End Date Pcp, Unknown PCP - General 03/18/24 Additional Source Comments The information contained in this document represents components of the legal health record. It is not the complete legal health record.[facility]
== END 2025-01-27 13:14 | disposition home or self-care (01) ==
LOC: HO.HMCFM 12:31
PROVIDERS: PCP Nurse Practitioner Family; Visit Provider Nurse Practitioner Family
DX: F41.1 Generalized anxiety disorder (principal); N94.6 Dysmenorrhea, unspecified; R79.89 Other specified abnormal findings of blood chemistry; G25.81 Restless legs syndrome

== ENCOUNTER → 2025-01-27 12:31 | Outpatient (BNVA) | payer OTHER, SELFPAY | PROVIDERS: PCP Nurse Practitioner Family; Visit Provider Nurse Practitioner Family | DX: F41.1 Generalized anxiety disorder (principal); E66.9 Obesity, unspecified; N94.6 Dysmenorrhea, unspecified; K59.00 Constipation, unspecified; R79.89 Other specified abnormal findings of blood chemistry; G25.81 Restless legs syndrome | CPT/HCPCS: 96127 ==